=== PATIENT | male | born 1955 | race African-American/Black ===

== ENCOUNTER 2017-06-26 16:56 | Emergency (ER) | payer MEDICAID ==
[~2017-06-26] VITALS: Ht 167.6 cm; Wt 76.7 kg
[2017-06-26] MEDS ORDERED: ACETAMINOPHEN 650 mg PER 20 mL UD PO ONE (18:00)
[2017-06-26 18:55] VITALS: BP 146/74
== END 2017-06-26 20:02 | disposition home or self-care (01) ==
LOC: ER 17:11
DX: F41.9 Anxiety disorder, unspecified (principal); R05 Cough; R51 Headache